=== PATIENT | female | born 1990 | race Caucasian/White ===

== ENCOUNTER → 2022-06-20 10:15 | Outpatient (CLI) | payer BC, SELFPAY ==
--- NOTE | 2022-06-20 10:18 | DI.RAD.S_ITS ---
PROCEDURE: XR KNEE LT 3V INDICATIONS: Left knee pain TECHNIQUE: 3 views of the knee were acquired. COMPARISON: None. FINDINGS: Bones: No fractures or dislocations. No suspicious bony lesions. Soft tissues: Small joint effusion. No suspicious soft tissue calcifications. IMPRESSION: 1. No acute fracture. No osseous lesion. If symptoms and/or clinical suspicion for pathology persist, further assessment with repeat, or advanced imaging (e.g., CT, MRI, or bone scan) may be helpful for further assessment. Dictated by: Soni Layton M.D. on 06/20/2022 at 11:49 Approved by: Soni Layton M.D. on 06/20/2022 at 11:50
== END ==
PROVIDERS: PCP Registered Nurse Diabetes Educator; Referring Provider Nurse Practitioner Family; Visit Provider Nurse Practitioner Family
DX: S86.912A Strain of unspecified muscle(s) and tendon(s) at lower leg level, left leg, initial encounter (principal); X58.XXXA Exposure to other specified factors, initial encounter
CPT/HCPCS: 73562

== ENCOUNTER → 2022-07-23 11:49 | Outpatient (CLI) | payer BC, SELFPAY ==
--- NOTE | 2022-07-23 11:50 | DI.RAD.S_ITS ---
PROCEDURE: XR SHOULDER RT MIN 2V INDICATIONS: Eval R shoulder pain TECHNIQUE: 3 views of the shoulder were acquired. COMPARISON: None. FINDINGS: Bones: Abnormal angulation of the humeral distal diaphysis presumably due to remote fracture. No fractures or dislocations. No suspicious bony lesions. Visualized ribs appear intact. Soft tissues: No suspicious soft tissue calcifications. IMPRESSION: No acute finding. Abnormal angulation of the humeral distal diaphysis presumably due to remote fracture. Dictated by: Gonzalo Oates M.D. on 07/24/2022 at 23:58 Approved by: Gonzalo Oates M.D. on 07/24/2022 at 23:59
== END ==
PROVIDERS: PCP Registered Nurse Diabetes Educator; Referring Provider Registered Nurse Diabetes Educator; Visit Provider Registered Nurse Diabetes Educator
DX: M25.511 Pain in right shoulder (principal)
CPT/HCPCS: 73030

== ENCOUNTER → 2022-07-26 08:33 | Outpatient (CLI) | payer BC, SELFPAY ==
[2022-07-26 10:11] LABS: Hemoglobin 13.6 g/dL (12.0-16.0); Mean Corpuscular HGB Conc 33.2 % (30-36); Mean Corpuscular Hemoglobin 28.9 PG (26-34); Platelet Count 219 X10^3/uL (150-400); Red Blood Cell Count 4.72 X10^6/uL (4.0-5.2); White Blood Cell Count 4.7 X10^3/uL (4.5-11.0)
[2022-07-26 10:36] LABS: Alanine Aminotransferase 14 IU/L (<35); Albumin 4.4 g/dL (3.5-5.0); Albumin Globulin Ratio 1.4 (1.0-2.8); Alkaline Phosphatase 42 U/L (38-126); Aspartate Aminotransferase 19 IU/L (14-36); BUN Creatinine Ratio 13.7 (6-22); Bilirubin Total 0.4 mg/dL (0.2-1.3); Blood Urea Nitrogen 10 mg/dL (7-17); Calcium 8.9 mg/dL (8.4-10.2); Carbon Dioxide 26 mmol/L (22-32); Chloride 106 mmol/L (98-107); Cholesterol 229 mg/dL (140-199); Estimated Glomerular Filt Rate > 60 mL/min (>60); Globulin 3.1 g/dL (1.7-4.1); Glucose 97 mg/dL (70-100); HDL Cholesterol 40 mg/dL (40-60); HEMOLYSIS < 15 (0-50); LDL Cholesterol Calculated 173 mg/dL (<100); Potassium 4.8 mmol/L (3.4-5.1); Sodium 138 mmol/L (137-145); Total Protein 7.5 g/dL (6.3-8.2); Triglycerides 80 mg/dL (35-150)
[2022-07-26 10:52] LABS: Vitamin D 25 Hydroxy (D3) 63.8 ng/mL (30.0-100.0)
[2022-07-26 11:20] LABS: TSH w/ Reflex to FT4 0.73 uIU/mL (0.47-4.68)
== END ==
PROVIDERS: PCP Registered Nurse Diabetes Educator; Referring Provider Registered Nurse Diabetes Educator; Visit Provider Registered Nurse Diabetes Educator
DX: E55.9 Vitamin D deficiency, unspecified (principal); E78.5 Hyperlipidemia, unspecified
CPT/HCPCS: 36415; 80053; 80061; 82306; 84443; 85027

== ENCOUNTER → 2022-08-15 08:38 | Outpatient (CLI) | payer BC, SELFPAY ==
--- NOTE | 2022-08-15 | DI.RAD.S_ITS ---
PROCEDURE: FL SHOULDER INJECTION MR/CT RT INDICATIONS: RIGHT SHOULDER PAIN COMPARISON: [facility], MR, MR SHOULDER RT W CON, 08/15/2022, 9:09. [facility], CR, XR SHOULDER RT MIN 2V, 07/23/2022, 11:54. TECHNIQUE: The indications, alternatives, benefits, risks, and complications of the procedure were explained to the patient. Written informed consent was obtained and placed in the chart. The shoulder was examined fluoroscopically and a site for needle placement chosen for entry into the glenohumeral joint from an anterior approach. The skin was prepped and draped in a sterile fashion, and 1% lidocaine infiltrated from skin down to joint capsule. A spinal needle was inserted into the glenohumeral joint, and a small amount of iodinated contrast media injected to confirm intra-articular placement of the needle tip. This was followed by approximately 12 mL dilute solution of a gadolinium containing MR contrast agent. The needle was removed and a dressing was applied. The patient was given postprocedural instructions and sent to the MR suite for MR imaging. FINDINGS: A single fluoroscopic spot image demonstrates intra-articular location of injected iodinated contrast. IMPRESSION: Successful fluoroscopically guided administration of dilute Gadolinium solution into the shoulder joint for MR arthrogram. Dictated by: Jose Goss M.D. on 08/15/2022 at 10:13 Approved by: Jose Goss M.D. on 08/15/2022 at 10:13
--- NOTE | 2022-08-15 08:40 | DI.MRI.S_ITS ---
PROCEDURE: MR SHOULDER RT W CON INDICATIONS: Right shoulder pain refractory to PT TECHNIQUE: After the administration of 12 mL of dilute intra-articular Gadolinium contrast, oblique coronal T1 and T2 spin echo with fat saturation, oblique sagittal T1 spin echo with and without fat saturation, oblique sagittal T2 fast spin echo with fat saturation, axial T1 spin echo with fat saturation through the shoulder. COMPARISON: [facility], RF, [place] SHOULDER INJECTION MR/CT RT, 08/15/2022, 9:03. [facility], CR, XR SHOULDER RT MIN 2V, 07/23/2022, 11:54. FINDINGS: Image quality: Excellent. Rotator cuff: There is partial tear of the supraspinatus tendon involving the footprint. There is mild subscapularis tendinosis without discrete tendon tear. The infraspinatus tendons appears normal. No rotator cuff muscle atrophy on sagittal images. Bones and bursae: No bone marrow contusions or fractures. Mild acromioclavicular joint degeneration. The acromion demonstrates conventional anatomy, without an os acromiale. Capsule and soft tissues: There is posterior superior labral tear at 1:00-2:00.. The glenohumeral ligaments appear intact. The long head of the biceps tendon demonstrates normal location and morphology. The rotator interval appears normal, without fibrosis. The coracohumeral ligament is of normal thickness. No intra-articular bodies. IMPRESSION: 1. Partial tear of the supraspinatus tendon involving the footprint. 2. Mild supraspinatus and subscapularis tendinosis. 3. Posterior superior labral tear. 4. Mild acromioclavicular joint degeneration. Dictated by: Jose Goss M.D. on 08/15/2022 at 13:52 Approved by: Jose Goss M.D. on 08/15/2022 at 14:03
== END ==
PROVIDERS: PCP Registered Nurse Diabetes Educator; Referring Provider Registered Nurse Diabetes Educator; Visit Provider Registered Nurse Diabetes Educator
DX: M75.111 Incomplete rotator cuff tear or rupture of right shoulder, not specified as traumatic (principal); M19.011 Primary osteoarthritis, right shoulder; S43.491A Other sprain of right shoulder joint, initial encounter; M25.511 Pain in right shoulder; G89.29 Other chronic pain
CPT/HCPCS: 23350; 73222; 77002

== ENCOUNTER 2022-12-21 03:50 | Emergency (ER) | payer BC, SELFPAY ==
--- NOTE | 2022-12-21 03:52 | ED_ITS ---
HPI - Extremity Injury (Upper) General Chief Complaint: Extremity Injury, Upper Stated Complaint: LT. HAND RING FINGER LACERATION Time Seen by Provider: 12/21/22 03:51 History of Present Illness HPI narrative: 32F nonsmoker with noncontributory medical history presents with a chief compl aint of an accidental injury to the tip of her left ring finger when she was preparing dinner tonight. She had initially wrapped it with a dressing and thought all was well but woke up in the middle of the night her and felt wet and she noticed it it started bleeding again. She does not take any blood thinners. She denies any systemic complaints such as dizziness, weakness or lightheadedness. She states her tetanus will need to be updated Related Data Previous Rx's Medication Instructions Recorded vits no.130-ferrous fum 1 tab PO DAILY #100 tabs 09/24/22 27 mg iron-folic acid 800 mcg tablet ( Vitamin) Allergies Allergy/AdvReac Type Severity Reaction Status Date / Time No Known Drug Allergies Allergy Unverified 09/24/22 15:52 Review of Systems Review of Systems Narrative: GENERAL: Denies chills, fatigue, malaise, fever, sweats. HEENT: Denies sinus pain, ear pain, sore throat, difficulty swallowing, dizziness. RESPIRATORY: Denies dyspnea, cough, wheezing, hemoptysis, sputum. CARDIOVASCULAR: Denies chest pain, palpitations, orthopnea, edema, GASTROINTESTINAL: Denies nausea, vomiting, abdominal pain, diarrhea, constipation, melena. : Denies dysuria, frequency, incontinence, hematuria, urinary retention. MUSCULOSKELETAL: denies weakness, joint pain, or bony pain SKIN: See HPI NEUROLOGIC: Denies weakness, headache, numbness, change in speech, confusion, s eizures, incoordination. PSYCHIATRIC: No concerning psychosocial issues. 12 point review of systems is negative except for those stated above Patient History Medical History Acne (~1999) Dyslipidemia Fractures Surgical History Anesthesia [place] teeth removed (~2015) Family History Father Parkinson's disease Diabetes mellitus Hypertension Hyperlipidemia History of heart attack History of heart disease Mother Mental health problem Brother Melanoma Cancer Brother Mental health problem Grandfather Diabetes mellitus History of heart disease Hyperlipidemia Hypertension Grandmother History of heart disease Hypertension Hyperlipidemia Mental health problem Social History Smoking Status: Never smoker Smoking Status: Never smoker Exam Narrative Exam Narrative: GEN: AOx3 and in mild distress EYES: Pupils are equal, round, and reactive to light and accommodation. Extraoccular muscles are intact bilaterally. There is no subconjunctival hemorrhage or exudate. CHEST: Lungs are clear to auscultation bilaterally and free of wheezes, rales, or rhonchi. Heart rate is regular rhythm, there are no murmurs, clicks, rubs, or gallops. There is no chest wall tenderness. ABD: Abdomen is soft and nontender. There is no guarding or rebound. Bowel sounds are normal in all 4 quadrants. There is no mass or organomegaly. EXT: Full painless ROM of all extremities with no loss of sensation or strength. SKIN: 0.5 cm x 0.5cm avulsion laceration on the tip of the left 4th finger, no bone exposure, no nail or nail bed involvement. Firm pressure does start bleeding but there does appear to be a small arterial component, this will require a suture for hemostasis only Initial Vital Signs Initial Vital Signs: Vital Signs Temperature 98.6 F 12/21/22 04:01 Pulse Rate 88 12/21/22 04:01 Respiratory Rate 14 12/21/22 04:01 Blood Pressure 111/58 L 12/21/22 04:01 Pulse Oximetry 100 12/21/22 04:01 Oxygen Delivery Method 12/21/22 04:01 Procedures Laceration Repair Laceration 1: Site: hand Side (If applicable): left Size (cm): 0.5 Description: other Depth: simple, single layer Local Anesthetic: lidocaine 2% Amount of anesthesia used (mL): 2 Pre-repair: wound explored, irrigated extensively and deep structures intact Skin layer closed with: nylon Skin layer suture size: 4-0 Number of sutures: 1 Course Orders Ordered: Discontinued Medications Diphtheria/Tetanus/Acell Pertussis (Tet,Diph,Pertuss(Acell),Vac/Pf 0.5 Ml Syringe) 0.5 ml IM .ONCE ONE Stop: 12/21/22 04:11 Last Admin: 12/21/22 04:20 Dose: 0.5 ml Vital Signs Vital signs: Vital Signs - 8 hr 12/21/22 04:01 Temperature 98.6 F Pulse Rate 88 Respiratory Rate 14 Blood Pressure 111/58 L Pulse Oximetry 100 Oxygen Delivery Method Room Air MDM - Extremity Injury (Upper) MDM Narrative Medical decision making narrative: [32] year old patient presents with Prior Charts reviewed in our EMR Primary Historian: patient Patient's symptoms improved over duration of stay with above-stated therapies. Findings and discharge diagnosis discussed with patient/family followed by verbalization of understanding Return precautions discussed with patient/family whom verbalize understanding of diagnosis and plan Discharge Plan Departure Patient Disposition: Home Clinical Impression: Laceration of left ring finger Instructions: DI for Laceration Repair -- Finger Activity Restrictions/Additional Instructions: *You have been diagnosed with [fingertip avulsion laceration *What to do: *Please continue to take your regular medications as directed. Please keep the wound clean and dry to the best of your ability. Please monitor for signs of infection such as redness to the skin or increasing pain. Have the sutures/shwetha removed by your doctor in about 7 days. If you are unable to get into your doctor, we would be happy to remove the sutures/shwetha in that same timeframe. Prescriptions: No Action Vitamin 27 mg iron- 800 mcg tablet 1 tab PO DAILY Qty: 100 3RF Referrals: Ba Michelle ARNP [Primary Care Provider] - Stand Alone Forms: Patient Portal/API
[2022-12-21 04:01] VITALS: BP 111/58; PULSE 88; RESP 14; TEMP 37; O2SAT 100; BMI 31.1
[2022-12-21] MEDS: TET,DIPH,PERTUSS(ACELL),VAC/PF 0.5 ML SYRINGE IM (04:20)
[2022-12-21 04:33] VITALS: BP 110/62; PULSE 70; RESP 14; TEMP 36.3; O2SAT 100
== END 2022-12-21 04:35 | disposition home or self-care (01) ==
PROVIDERS: Emergency Provider Emergency Medicine; PCP Registered Nurse Diabetes Educator
DX: S61.215A Laceration without foreign body of left ring finger without damage to nail, initial encounter (principal); W26.0XXA Contact with knife, initial encounter; Z23 Encounter for immunization
CPT/HCPCS: 12001; 90471; 99283; 90715

== ENCOUNTER → 2023-09-02 14:14 | Outpatient (CLI) | payer BC, SELFPAY ==
--- NOTE | 2023-09-02 14:16 | DI.US.S_ITS ---
PROCEDURE: US PELVIC COMPLETE INDICATIONS: POLYCYSTIC OVARIAN SYNDROME TECHNIQUE: Real-time scanning was performed of the pelvic organs, with image documentation. Additional endovaginal scanning was necessary due to incomplete visualization of the adnexal and endometrial structures by transabdominal scanning. COMPARISON: None. FINDINGS: Uterus: Uterus is anteverted and normal in size at 8.5 x 3.4 x 4.6 cm. The myometrium is homogeneous. The endometrium measures 5 mm combined thickness. No fibroids Ovaries: The right ovary measures 2.3 x 3.4 x 2.7 cm, with a calculated ovarian volume of 10.8 cc. The left ovary measures 2.3 x 3.7 x 2.1 cm, with a calculated ovarian volume of 9.2 cc. The ovaries have a normal sonographic appearance. Greater than 12 follicles can be seen in each ovary. No adnexal masses are seen. Other: No pathologic free abdominal or pelvic fluid. IMPRESSION: Greater than 12 follicles seen in each ovary, supportive of a potential clinical diagnosis of polycystic ovarian syndrome. We strive to produce accurate, complete, and clear reports of imaging services. To assist us in improving patient care, this report was composed using standard report templates and voice recognition software. Therefore, it may contain abnormal punctuation, insertions and/or omissions. Occasional wrong-word or sound-alike substitutions may occur. Though we review the report and make efforts to correct it, we do recommend that the report be read carefully in proper context to recognize any text inaccuracies. Dictated by: Juan Pablo Walker M.D. on 09/02/2023 at 15:52 Approved by: Juan Pablo Walker M.D. on 09/02/2023 at 15:58
== END ==
PROVIDERS: PCP Registered Nurse Diabetes Educator; Referring Provider Registered Nurse; Visit Provider Registered Nurse
DX: E28.2 Polycystic ovarian syndrome (principal)
CPT/HCPCS: 76830; 76856

== ENCOUNTER → 2025-07-06 15:23 | Outpatient (CLI) | payer BC, SELFPAY ==
--- NOTE | 2025-07-06 15:26 | DI.RAD.S_ITS ---
PROCEDURE: XR CERVICAL SPINE 2V OR 3V INDICATIONS: Chronic neck pain TECHNIQUE: 4 view(s) of the cervical spine were acquired. COMPARISON: None. FINDINGS: Bones: No fractures or dislocations to the T1 level. The lateral masses of C1 appear intact on the odontoid view. No suspicious bony lesions. Soft tissues: No prevertebral soft tissue swelling. IMPRESSION: No displaced fracture or traumatic subluxation. Dictated by: Cole Mixon M.D. on 07/10/2025 at 4:47 Approved by: Cole Mixon M.D. on 07/10/2025 at 4:48
== END ==
PROVIDERS: PCP Registered Nurse Diabetes Educator; Referring Provider Nurse Practitioner Family; Visit Provider Nurse Practitioner Family
DX: M54.2 Cervicalgia (principal)
CPT/HCPCS: 72040

== ENCOUNTER → 2025-07-27 13:37 | Outpatient (CLI) | payer BC, SELFPAY ==
--- NOTE | 2025-07-27 13:38 | DI.MRI.S_ITS ---
PROCEDURE: MR CERVICAL SPINE WO CON INDICATIONS: eval chronic neck pain TECHNIQUE: Noncontrast sagittal T1 spin echo and T2 fast spin echo, sagittal STIR, foraminal oblique sagittal T2 fast spin echo, and axial gradient echo or T2 fast spin echo through the cervical spine. COMPARISON: None. FINDINGS: Image quality: Excellent. Alignment and Curvature: There is normal bony alignment. Bone Marrow: Marrow demonstrates normal overall signal. Spinal Cord: Visualized spinal cord has normal size and signal. No cerebellar tonsillar herniation. Paraspinous Soft Tissues: No paravertebral masses. Prevertebral soft tissues are normal in thickness. C2-C3: No central canal or neural foraminal stenosis. C3-C4: Disc desiccation and minimal posterior disc osteophyte complex. Mild facet and uncovertebral arthropathy. No central canal or neural foraminal stenosis. C4-C5: Facet and uncovertebral arthropathy. No central canal stenosis. Mild bilateral neural foraminal stenosis. C5-C6: Disc desiccation and minimal posterior disc osteophyte complex. Facet and uncovertebral arthropathy. No significant central canal or neural foraminal stenosis. C6-C7: Disc desiccation and posterior disc osteophyte complex. Facet and uncovertebral arthropathy. No central canal or neural foraminal stenosis. C7-T1: No central canal or neural foraminal stenosis. IMPRESSION: Mild multilevel degenerative changes of the cervical spine. No high-grade central canal or neural foraminal stenosis. Dictated by: Jai Rueda M.D. on 07/27/2025 at 16:06 Approved by: aJi Rueda M.D. on 07/27/2025 at 16:10
== END ==
LOC: MRI 13:37
PROVIDERS: PCP Registered Nurse Diabetes Educator; Referring Provider Registered Nurse Diabetes Educator; Visit Provider Registered Nurse Diabetes Educator
DX: M47.812 Spondylosis without myelopathy or radiculopathy, cervical region (principal); M54.2 Cervicalgia; G89.29 Other chronic pain
CPT/HCPCS: 72141

== ENCOUNTER → 2025-08-02 07:15 | Outpatient (CLI) | payer BC, SELFPAY ==
[2025-08-02 08:41] LABS: Hematocrit 41.1 % (36-46); Hemoglobin 13.9 g/dL (12.0-16.0); Mean Corpuscular HGB Conc 33.8 % (30-36); Mean Corpuscular Hemoglobin 29.1 PG (26-34); Mean Corpuscular Volume 86.1 fL (80-100); Platelet Count 276 X10^3/uL (150-400)
[2025-08-02 09:02] LABS: Alanine Aminotransferase 15 IU/L (<35); Albumin 4.3 g/dL (3.5-5.0); Albumin Globulin Ratio 1.7 (1.0-2.8); Alkaline Phosphatase 49 U/L (38-126); Calcium 9.0 mg/dL (8.4-10.2); Carbon Dioxide 23 mmol/L (22-32); Chloride 104 mmol/L (98-107); Globulin 2.6 g/dL (1.7-4.1); Glucose 98 mg/dL (70-99); HDL Cholesterol 50 mg/dL (40-60); HEMOLYSIS < 15 (0-50); Potassium 4.3 mmol/L (3.4-5.1); Sodium 138 mmol/L (137-145); Total Protein 6.9 g/dL (6.3-8.2)
[2025-08-02 09:05] LABS: Blood Urea Nitrogen 10 mg/dL (7-17); Cholesterol 216 mg/dL (140-199); Estimated Glomerular Filt Rate > 60 mL/min (>60); Triglycerides 105 mg/dL (35-150)
[2025-08-02 09:29] LABS: TSH w/ Reflex to FT4 0.72 uIU/mL (0.47-4.68)
== END ==
PROVIDERS: PCP Registered Nurse Diabetes Educator; Referring Provider Registered Nurse Diabetes Educator; Visit Provider Registered Nurse Diabetes Educator
DX: Z00.00 Encounter for general adult medical examination without abnormal findings (principal); E78.5 Hyperlipidemia, unspecified
CPT/HCPCS: 36415; 80053; 80061; 84443; 85027